=== PATIENT | male | born 1985 | race Caucasian/White ===

== ENCOUNTER 2019-11-18 08:53 | Inpatient (IN) | payer BC ==
[~2019-11-18] VITALS: Ht 177.8 cm; Wt 105.3 kg
[2019-11-18 09:23] VITALS: Ht 177.8 cm; Wt 105.3 kg
[2019-11-18 10:21] LABS: PLATELET COUNT 148 x10^3mcL (130-400); RED CELL DISTRIBUTION WIDTH 12.4 % (11.5-14.5)
[2019-11-18 10:22] LABS: BASOPHIL % 0 % (0-2)
[2019-11-18 10:52] LABS: ALBUMIN 3.9 g/dL (3.4-5.0); ALKALINE PHOSPHATASE 86 U/L (46-116); ALT/SGPT 94 U/L (16-63); AST/SGOT 29 U/L (15-37); CALCIUM 8.8 mg/dL (8.5-10.1); CARBON DIOXIDE 29.5 mmol/L (21-32); CHLORIDE SERUM 105 mmol/L (98-107); CREATININE SERUM 1.1 mg/dL (0.7-1.3); GFR1 > 60 mL/min; GLUCOSE SERUM 107 mg/dL (74-106); LIPASE 93 IU/L (73-393); POTASSIUM SERUM 4.4 mmol/L (3.5-5.1); SODIUM SERUM 141 mmol/L (136-145); TOTAL PROTEIN, SERUM 7.6 g/dL (6.4-8.2)
[2019-11-18 11:09] LABS: BILIRUBIN TOTAL 0.77 mg/dL (0.20-1.00)
[2019-11-18 12:42] LABS: CHOLESTEROL/HDL RATIO 5.8; PHOSPHOROUS 3.4 mg/dL (2.5-4.9)
[2019-11-18 14:41] VITALS: BP 99/62
[2019-11-18 16:58] VITALS: BP 115/69
[2019-11-18 21:31] VITALS: BP 116/76
[2019-11-19 02:10] VITALS: BP 105/68
[2019-11-19 05:56] VITALS: BP 106/66
[2019-11-19 06:13] LABS: PLATELET COUNT 158 x10^3mcL (130-400); RED CELL DISTRIBUTION WIDTH 12.8 % (11.5-14.5)
[2019-11-19 06:19] LABS: BASOPHIL % 0 % (0-2)
[2019-11-19 06:34] LABS: CALCIUM 8.4 mg/dL (8.5-10.1); CARBON DIOXIDE 26.4 mmol/L (21-32); CHLORIDE SERUM 105 mmol/L (98-107); GFR1 > 60 mL/min; GLUCOSE SERUM 102 mg/dL (74-106); POTASSIUM SERUM 4.2 mmol/L (3.5-5.1); SODIUM SERUM 141 mmol/L (136-145)
[2019-11-19 07:32] VITALS: BP 112/74
[2019-11-19 10:57] VITALS: BP 112/74
[2019-11-19] MEDS ORDERED: IBUPROFEN400 MG PO (11:10)
== END 2019-11-19 12:07 | disposition home or self-care (01) | DRG 343 ==
LOC: ED 08:53 → MU 12:03
PROVIDERS: Emergency Medicine; Surgery; ADMIT Family Medicine
PROC: 0DTJ4ZZ Resection of Appendix, Percutaneous Endoscopic Approach (ICD-10-PCS; principal; 2019-11-18 12:30)
DX: K35.80 Unspecified acute appendicitis (principal); I10 Essential (primary) hypertension; F17.200 Nicotine dependence, unspecified, uncomplicated; E66.9 Obesity, unspecified; Z68.33 Body mass index [BMI] 33.0-33.9, adult
CPT/HCPCS: G0378; J0694; J2250; J2270; J2405; J2543; J3010; J3490; J7030